=== PATIENT | female | born 1945 | race Caucasian/White ===

== ENCOUNTER 2021-12-06 11:07 | Emergency (ER) | payer MEDICARE, OTHER ==
[2021-12-06 11:20] VITALS: BP 158/66; PULSE 68; TEMP 97.9; BMI 34.3
[2021-12-06] MEDS ORDERED: SOTROVIMAB 500 MG in SODIUM CHLORIDE 100 ML IVPB ONE (12:45)
== END 2021-12-06 17:12 | disposition home or self-care (01) ==
LOC: JCOVINFU 11:07
DX: U07.1 COVID-19 (principal)
CPT/HCPCS: 99284-25; M0247; Q0247